=== PATIENT | male | born 1990 | race African-American/Black ===

== ENCOUNTER 2021-06-03 15:52 | Emergency (ER) | payer OTHER ==
[~2021-06-03] VITALS: Ht 185.4 cm; Wt 107.0 kg
[2021-06-03] MEDS ORDERED: BACITRACIN ZINC OINT UDPKT TOP ONE (16:30)
[2021-06-03] MEDS ORDERED: IBUPROFEN 400MG TABLET PO ONE (16:30)
[2021-06-03] MEDS ORDERED: TETANUS, DIPHTHERIA, PERTUSSIS VAC/PF 0.5ML (>10YR OLD) IM ONE (17:15)
[2021-06-03] MEDS ORDERED: IBUP-2028 MT (18:01)
[2021-06-03] MEDS ORDERED: CEPH500C2 MT (18:01)
[2021-06-03] MEDS ORDERED: NEOM28.37 TP (18:04)
[2021-06-03] MEDS ORDERED: TRAMADOL 50MG TABLET PO ONE (19:00)
[2021-06-03 19:25] VITALS: BP 140/82
== END 2021-06-03 19:39 | disposition home or self-care (01) ==
LOC: ER 15:52
DX: S89.82XA Other specified injuries of left lower leg, initial encounter (principal); E11.9 Type 2 diabetes mellitus without complications; X58.XXXA Exposure to other specified factors, initial encounter; Y93.89 Activity, other specified; Y92.89 Other specified places as the place of occurrence of the external cause
CPT/HCPCS: 73560; 73590; 99284